=== PATIENT | female | born 1975 | race Caucasian/White ===

== ENCOUNTER → 2017-07-04 | Outpatient (CLI) | payer OTHER | LOC: MC.RAD 10:14 | DX: Z12.31 Encounter for screening mammogram for malignant neoplasm of breast (principal) ==

== ENCOUNTER 2020-02-23 05:42 | Day surgery (SDC) | payer OTHER ==
[~2020-02-23] VITALS: Ht 167.6 cm; Wt 64.2 kg
[2020-02-23] VITALS (11 sets, daily range): BP systolic 95–109; BP diastolic 53–81; PULSE 47–74; TEMP 97.5–99
[2020-02-23] MEDS ORDERED: PEPCID 20MG TAB20 MG PO (05:59)
[2020-02-23] MEDS ORDERED: PROBIOTIC FORMU1 CAP PO (06:00)
[2020-02-23] MEDS ORDERED: ALEVE 220MG220 MG PO (06:01)
[2020-02-23] MEDS ORDERED: NATURAL IRON65 MG PO (06:01)
--- NOTE | 2020-02-23 09:25 | NUR ---
Pt to room 222 from PACU. She is drowsy but awakens easily. Denies needs at this time. Discomfort 1/10 and feels crampy. Dressings clean and dry. brought to bedside. Call light in reach. VSS.
--- NOTE | 2020-02-23 10:30 | NUR ---
Pt has tolerated crackers well and denies nausea. Eats pudding well and takes a Percocet for pain 2/10. Denies other needs at this time.
--- NOTE | 2020-02-23 12:15 | NUR ---
Pt ambulated to the bathroom x2 assist. Unable to void. Pain tolerable.
--- NOTE | 2020-02-23 13:00 | NUR ---
Bladder scan done with results of 95mls. Pt ambulates to the bathroom without difficulty. Unable to void. [id number] Veliz about Bladder scan results. Pt's going to lunch and she is going to rest. Pain tolerable. Minimal amounts of lochia to pad noted.
--- NOTE | 2020-02-23 17:30 | NUR ---
Pt doing well, resting quietly. Pain tolerable. Denies needs at this time.
[2020-02-24] VITALS: BP 90/57; PULSE 57; TEMP 98.2
[2020-02-24 04:00] VITALS: BP 99/55; PULSE 75; TEMP 98.2
[2020-02-24 07:14] VITALS: BP 95/54; PULSE 71; TEMP 98.7
--- NOTE | 2020-02-24 09:26 | NUR ---
Initial visit; Patient thanked [employer] for offering spiritual care and wishing her well and God's blessings.
--- NOTE | 2020-02-24 09:30 | NUR ---
Pt up to shower and removes bandaids. Denies needs, minimal lochia noted to pad.
--- NOTE | 2020-02-24 11:50 | NUR ---
Dr Veliz notified of post void bladder scan results and orders for pt to discharge to home.
[2020-02-24] MEDS ORDERED: PERCOCET 325 MG1 TA2 PO (12:01)
--- NOTE | 2020-02-24 13:19 | NUR ---
Pt tolerated lunch well, doing well. Discharge instructions provided to patient and . Pt taken to private care via wheelchair and left in care of her .
== END 2020-02-24 13:19 | disposition home or self-care (01) ==
LOC: SDCO 05:42 → SURG 07:30 → EDSTATUS 07:30 → SDCO 07:30 → OB 12:00 → SDCO 02-24 13:19
DX: N84.0 Polyp of corpus uteri (principal); N83.8 Other noninflammatory disorders of ovary, fallopian tube and broad ligament; N80.1 Endometriosis of ovary; N83.02 Follicular cyst of left ovary; N80.3 Endometriosis of pelvic peritoneum; N73.6 Female pelvic peritoneal adhesions (postinfective); Z20.828 Contact with and (suspected) exposure to other viral communicable diseases; K21.9 Gastro-esophageal reflux disease without esophagitis; Z79.899 Other long term (current) drug therapy; Z88.0 Allergy status to penicillin; Z80.0 Family history of malignant neoplasm of digestive organs
CPT/HCPCS: OP; J0690; J1100; J1885; J2405; J2704; J3010; J7120

== ENCOUNTER → 2020-07-26 | Outpatient (CLI) | payer OTHER ==
[~2020-07-26] MED LIST: ALEVE 220MG220 MG PO; NATURAL IRON65 MG PO; PEPCID 20MG TAB20 MG PO; PERCOCET 325 MG1 TA2 PO; PROBIOTIC FORMU1 CAP PO
== END ==
LOC: MC.RAD 12:56
DX: N60.01 Solitary cyst of right breast (principal); N63.10 Unspecified lump in the right breast, unspecified quadrant